=== PATIENT | male | born 1995 | race Caucasian/White ===

== ENCOUNTER 2021-04-28 10:43 | Emergency (ER) | payer OTHER ==
--- NOTE | 2021-04-28 11:05 | ED Physician Documentation ---
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 Overdid it over the hot weekend and a Frisbee golf tournament and felt like he got dehydrated. Fell again get better, but remains weak and fatigued. Review of Systems Constitutional: reports: Fatigue. denies: Chills, Myalgias Cardiac: denies: Chest pain / pressure, Palpitations Respiratory: denies: Dyspnea, Cough GI: denies: Nausea, Vomiting, Diarrhea PD PAST MEDICAL HISTORY - Present Medications Home Medications: Ambulatory Orders Medication Instructions Recorded Confirmed Amiloride/Hydrochlorothiazide 1 each PO DAILY 04/28/21 04/28/21 [Amiloride HCl-Hctz 5-50 mg Tab] Potassium Chloride [Klor-Con 10] 5 meq PO DAILY 04/28/21 04/28/21 - Allergies Allergies/Adverse Reactions: Allergies Allergy/AdvReac Type Severity Reaction Status Date / Time No Known Drug Allergies Allergy Verified 04/28/21 10:51 PD ED PE NORMAL - Vitals Vital signs reviewed: Yes - General General: Alert and oriented X 3, No acute distress - Cardiac Cardiac: RRR, No murmur - Respiratory Respiratory: No respiratory distress, Clear bilaterally - Abdomen Abdomen: Non tender - Extremities Extremities: No edema - Neuro Neuro: Alert and oriented X 3, Normal speech Results - Vitals Vitals: Vital Signs - 24 hr 04/28/21 04/28/21 04/28/21 10:47 13:33 14:23 Temperature 36.4 C L 36.3 C L 37.1 C Heart Rate 67 59 L 64 Respiratory 16 18 12 Rate Blood Pressure 163/95 H 112/64 130/77 O2 Saturation 100 100 100 Oxygen O2 Source Room air - Labs Labs: Laboratory Tests 04/28/21 11:01 Sodium 136 Potassium 4.4 Chloride 103 Carbon Dioxide 25 Anion Gap 8.0 BUN 14 Creatinine 0.8 Estimated GFR (MDRD) 116 Glucose 90 Calcium 9.1 Phosphorus 2.1 L Magnesium 2.3 PD MEDICAL DECISION MAKING - ED course ED course: 25-year-old gentleman presents with symptoms of persistent dehydration Electrolytes were checked and the only significant abnormality was, moderate hypophosphatemia. Feeling better after IV fluids and phosphate repletion. Departure - Departure Disposition: 01 Home, Self Care Clinical Impression: Dehydration, Hypophosphatemia Condition: Good Record reviewed to determine appropriate education?: Yes Instructions: ED Dehydration Comments: Continue current meds. Drink plenty of fluids. Return if worse. Discharge Date/Time: 04/28/21 14:26
[2021-04-28 11:20] LABS: CALCIUM 9.1 mg/dL (8.5-10.3); CREATININE 0.8 mg/dL (0.6-1.2); MAGNESIUM 2.3 mg/dL (1.7-2.8); PHOSPHORUS 2.1 mg/dL (2.5-4.6); POTASSIUM 4.4 mmol/L (3.5-5.0)
[2021-04-28] MEDS ORDERED: SODIUM PHOSPHATE 15 MMOL in SODIUM CHLORIDE 0.9% 250 ML IV ONE (11:32)
[2021-04-28] MEDS ORDERED: SODIUM CHLORIDE 0.9% 1,000 ML IV STA (11:49)
[2021-04-28 14:25] VITALS: BP 130/77
== END 2021-04-28 14:26 | disposition home or self-care (01) ==
LOC: ED 10:43
DX: E86.0 Dehydration (principal); E83.39 Other disorders of phosphorus metabolism
CPT/HCPCS: 36415; 80048; 83735; 84100; 96360; 99283

== ENCOUNTER 2021-08-26 12:25 | Emergency (ER) | payer OTHER ==
[2021-08-26 15:53] LABS: BASOPHILS # (AUTO) 0.1 10^3/uL (0.0-0.1); BASOPHILS % (AUTO) 0.4 %; EOSINOPHILS # (AUTO) 0.1 10^3/uL (0.0-0.7); EOSINOPHILS % (AUTO) 0.5 %; HGB - HEMOGLOBIN 15.3 g/dL (14.0-18.0); LYMPHOCYTES # (AUTO) 1.3 10^3/uL (1.5-3.5); LYMPHOCYTES % (AUTO) 8.9 %; MEAN CORPUSCULAR HEMOGLOBIN 27.9 pg (27.0-31.0); MEAN CORPUSCULAR HGB CONC 32.6 g/dL (32.0-36.0); MEAN CORPUSCULAR VOLUME 85.8 fL (80.0-94.0); MEAN PLATELET VOLUME 10.2 fL (7.4-11.4); MONOCYTES # (AUTO) 0.5 10^3/uL (0.0-1.0); MONOCYTES % (AUTO) 3.8 %; NEUTROPHILS # (AUTO) 12.1 10^3/uL (1.5-6.6); PLT - PLATELET COUNT 232 10^3/uL (130-450); RED BLOOD COUNT 5.48 10^6/uL (4.70-6.10); RED CELL DISTRIBUTION WIDTH 12.4 % (12.0-15.0)
--- NOTE | 2021-08-26 16:05 | ED Physician Documentation ---
History of Present Illness - Stated complaint Stated Complaint: CHEST PRESSURE - Chief complaint Chief Complaint: Cardiac - Additonal information Additional information: 26-year-old male presents the emergency department for evaluation of 4 days chest pressure. He reports that the pressure is constant not exertional. He has no dyspnea. No cough or fevers. 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 No family history of sudden early coronary artery disease or . No nicotine use though he does smoke cannabis. Very rare alcohol use. Review of Systems Constitutional: reports: Reviewed and negative Ears: reports: Reviewed and negative Throat: reports: Reviewed and negative Cardiac: reports: Chest pain / pressure. denies: Palpitations, Pedal edema, Calf pain Respiratory: denies: Dyspnea, Cough GI: reports: Reviewed and negative : reports: Reviewed and negative Skin: reports: Reviewed and negative PD PAST MEDICAL HISTORY - Past Medical History Cardiovascular: Hypertension, Other - Past Surgical History Past Surgical History: No - Present Medications Home Medications: Ambulatory Orders Medication Instructions Recorded Confirmed Amiloride/Hydrochlorothiazide 1 each PO DAILY 04/28/21 04/28/21 [Amiloride HCl-Hctz 5-50 mg Tab] Potassium Chloride [Klor-Con 10] 5 meq PO DAILY 04/28/21 04/28/21 - Allergies Allergies/Adverse Reactions: Allergies Allergy/AdvReac Type Severity Reaction Status Date / Time No Known Drug Allergies Allergy Verified 08/26/21 12:33 - Social History Does the pt smoke?: No Smoking Status: Never smoker PD ED PE NORMAL - HEENT HEENT: PERRL - Neck Neck: Supple, no meningeal sign - Cardiac Cardiac: RRR, No murmur, No gallop, No rub - Respiratory Respiratory: Clear bilaterally - Abdomen Abdomen: Normal bowel sounds, Soft, Non tender, Non distended Results - Vitals Vitals: Vital Signs - 24 hr 08/26/21 08/26/21 12:33 16:15 Temperature 36.5 C Heart Rate 90 57 L Respiratory 16 18 Rate Blood Pressure 165/88 H 137/80 H O2 Saturation 98 100 Oxygen O2 Source Room air - EKG (time done) 1234 Rate: Rate (enter#) (78) Rhythm: NSR [place]: Normal Intervals: Normal [place] QRS: Normal Ischemia: Normal ST segments Compare to prior EKG: Old EKG unavailable Computer interpretation: Agree with computer - Labs Labs: Laboratory Tests 08/26/21 08/26/21 08/26/21 15:47 15:47 15:47 WBC 14.0 H RBC 5.48 Hgb 15.3 Hct 47.0 MCV 85.8 MCH 27.9 MCHC 32.6 RDW 12.4 Plt Count 232 MPV 10.2 Neut # (Auto) 12.1 H Lymph # (Auto) 1.3 L [place] # (Auto) 0.5 Eos # (Auto) 0.1 Baso # (Auto) 0.1 Absolute Nucleated RBC 0.00 Nucleated RBC % 0.0 Sodium 136 Potassium 4.5 Chloride 99 L Carbon Dioxide 27 Anion Gap 10.0 BUN 10 Creatinine 1.0 Estimated GFR (MDRD) 89 Glucose 103 H Calcium 10.2 Total Bilirubin 0.9 AST 19 ALT 16 Alkaline Phosphatase 83 Troponin I High Sens 3.5 Total Protein 8.2 Albumin 4.9 Globulin 3.2 Albumin/Globulin Ratio 1.5 Lipase 282 H - Rads (name of study) CXR Radiology: Final report received (no acute process) CT abd Radiology: Final report received (No acute intra-abdominal process. Normal appendix. No explanation for elevated lipase.) PD MEDICAL DECISION MAKING - ED course Complexity details: reviewed results, re-evaluated patient, considered differential, d/w patient ED course: 26-year-old male presents emergency department for evaluation of 4 days left- sided chest pain. He did have some nausea but no vomiting. No history of similar. He is denied any diarrhea abdominal pain or dysuria. He does have a history of an electrolyte disorder though his electrolytes today are rather well preserved. Screening EKG was nonischemic chest x-ray was unremarkable. Trope was negative. However his Lipase was mildly elevated though no abdominal pain was elicited. A CT of the abdomen was completed that did not show findings of acute pancreatitis or pancreatic inflammation. His appendix is incidentally normal. Given that he is free of abdominal pain and has no vomiting and otherwise reassuring labs and vital signs patient is stable for discharge home. He has follow-up scheduled with the primary care provider on 03 September at which time his lipase will be reevaluated. Patient recommended brat diet for the next 48 hours and slowly advance. Emergent return precautions were discussed. Departure - Departure Disposition: Home, Self Care Clinical Impression: Elevated lipase Chest pain Qualifiers: Chest pain type: unspecified Qualified Code(s): R07.9 - Chest pain, unspecified Condition: Stable Record reviewed to determine appropriate education?: Yes Instructions: ED Chest Pain NonCardiac Follow-Up: Lucian Pathak MD [Primary Care Provider] - Comments: Virgilio hand are seen in the emergency department today for chest pain that has been present for about 4 days. As we discussed at the bedside your screening EKG and chest x-ray were unremarkable. Your screening labs did not show any worrisome findings with the exception of an elevated lipase which was approximately 250. your troponin was normal. You are not having a heart at tack, you do not have pneumonia and there is very little liekly higgins that your have a blood clot We did do a CT of the abdomen that did not show any findings of inflammation surrounding the pancreas. It was essentially normal. It is important that you continue to follow-up with your primary care provider on the fifth as already scheduled. If at any point you find that your chest pain is worsening, you have uncontrolled vomiting, develop suddenly severe abdominal pain and please return immediately to the ER for a second evaluation.
[2021-08-26 16:10] LABS: ALBUMIN 4.9 g/dL (3.2-5.5); ALBUMIN/GLOBULIN RATIO 1.5 (1.0-2.2); BILIRUBIN,TOTAL 0.9 mg/dL (0.2-1.0); CALCIUM 10.2 mg/dL (8.5-10.3); POTASSIUM 4.5 mmol/L (3.5-5.0); TOTAL PROTEIN 8.2 g/dL (6.7-8.2)
[2021-08-26] MEDS ORDERED: IOVERSOL 320 100 ML VIAL IVP ONE ×2 (16:41→22:36)
--- NOTE | 2021-08-26 16:51 | XRAY Report ---
PROCEDURE: Chest 1 View X-Ray INDICATIONS: chest pain TECHNIQUE: One view of the chest was acquired. COMPARISON: None FINDINGS: Surgical changes and devices: None. Lungs and pleura: No pleural effusions or pneumothorax. Lungs are clear. Mediastinum: Mediastinal contours appear normal. Heart size is normal. Bones and chest wall: No suspicious bony lesions. Overlying soft tissues appear unremarkable. IMPRESSION: No acute pulmonary process. Reviewed by: Elaina Echols MD on 08/26/2021 4:50 PM PDT Approved by: Elaina Echols MD on 08/26/2021 4:50 PM PDT Station ID: [id number]
--- NOTE | 2021-08-26 17:51 | CT Report ---
PROCEDURE: Abdomen/Pelvis W INDICATIONS: elevated lipase CONTRAST: IV CONTRAST: Optiray 320 ml: 100 PO CONTRAST: *NO PO CONTRAST TECHNIQUE: After the administration of IV contrast, 5 mm thick sections acquired from the diaphragms to the symp hysis. 5 mm thick coronal and sagittal reformats were acquired. For radiation dose reduction, the f ollowing was used: automated exposure control, adjustment of mA and/or kV according to patient size. COMPARISON: None. FINDINGS: Image quality: Excellent. ABDOMEN: Lung bases: Lung bases are clear. Heart size is normal. Solid organs: Liver and spleen are normal in size and enhancement. Gallbladder is within normal rausch its Biliary system is non dilated. Pancreas enhances normally. No adrenal nodules. Kidneys demons trate normal size and enhancement, without hydronephrosis. Peritoneum and bowel: Bowel loops demonstrate normal wall thickness and caliber. No free fluid or a ir. Normal appendix. Nodes and vessels: No retroperitoneal or mesenteric adenopathy by size criteria. Aorta and inferior vena cava are normal in size. Miscellaneous: No ventral hernias. PELVIS: Genitourinary: Bladder wall thickness is normal. Miscellaneous: No inguinal hernias or adenopathy. Bones: No suspicious bony lesions. No vertebral body compression fractures. IMPRESSION: 1. No acute process. No explanation for elevated lipase. 2. Normal appendix. Reviewed by: Juanita Blair MD on 08/26/2021 5:50 PM PDT Approved by: Juanita Blair MD on 08/26/2021 5:50 PM PDT Station ID: [id number]
[2021-08-26 18:15] VITALS: BP 132/79
== END 2021-08-26 18:22 | disposition home or self-care (01) ==
LOC: ED 12:25
DX: R07.89 Other chest pain (principal); R74.8 Abnormal levels of other serum enzymes; R11.0 Nausea; I10 Essential (primary) hypertension
CPT/HCPCS: 36415; 71045; 74177; 80053; 83690; 84484; 85025; 93005; 99283; 99284; Q9967